=== PATIENT | male | born 1955 | race Two or more races ===

== ENCOUNTER 2017-07-30 19:34 | Emergency (ER) | payer OTHER ==
[~2017-07-30] VITALS: Ht 175.3 cm; Wt 74.8 kg
[2017-07-30 20:00] VITALS: BP 144/77
== END 2017-07-30 21:27 | disposition home or self-care (01) ==
LOC: ER 19:34
DX: J06.9 Acute upper respiratory infection, unspecified (principal)
CPT/HCPCS: 71045-TC; A4606; Z7610